=== PATIENT | female | born 1960 | race Caucasian/White ===

== ENCOUNTER 2023-05-31 03:51 | Emergency (ER) | payer BC, SELFPAY ==
[2023-05-31 03:55] VITALS: BP 135/72
[2023-05-31 05:12] LABS: % Basophils 0.7 % (0-2); % Eosinophils 3.7 % (0-6); % Immature Granulocytes 0.1 % (0-0.5); % Lymphocytes 31.9 % (20.5-51.1); % Monocytes 9.2 % (1.7-9.3); % Neutrophils 54.4 % (42.2-75.2); Absolute Basophils 0.1 10^3/uL (0-0.2); Absolute Eosinophils 0.3 10^3/uL (0-0.7); Absolute Lymphocytes 2.3 10^3/uL (1.2-3.4); Absolute Monocytes 0.7 10^3/uL (0.1-0.6); Hematocrit 38.1 % (37.0-47.0); Hemoglobin 12.9 g/dL (12.0-16.0); Mean Corp Hgb Conc. 33.9 g/dL (33.0-37.0); Mean Corpuscular Hgb 30.5 pg (27.0-31.0); Mean Corpuscular Volume 90.1 fL (81.0-99.0); Mean Platelet Volume 10.1 fL (7.4-10.4); Nucleated Red Blood Cells % 0 %; Platelet Count 281 10^3/uL (130-400); Red Blood Cell Count 4.23 10^6/uL (4.20-5.40); Red Cell Dist. Width 13.3 % (11.5-14.5); White Blood Cell Count 7.3 10^3/uL (4.8-10.8)
[2023-05-31 05:26] LABS: ALT (SGPT) 26 U/L (0-35); AST (SGOT) 28 U/L (14-36); Albumin 3.8 g/dl (3.5-5.0); Alkaline Phosphatase 113 U/L (38-126); Blood Urea Nitrogen 21 mg/dl (7-17); Carbon Dioxide 31 mmol/L (22-30); Chloride 106 mmol/L (98-107); Glucose 119 mg/dl (70-99); Potassium 4.1 mmol/L (3.5-5.1); Sodium 138 mmol/L (135-145); Total Bilirubin 0.5 mg/dl (0.2-1.3); Total Protein 6.4 g/dl (6.3-8.2); eGFR > 60.00
[2023-05-31 05:43] VITALS: BP 124/60; BMI 27.3
--- NOTE | 2023-05-31 05:44 | EDRN ---
Pt has had a fluttering feeling in her chest most of yesterday. She noted it in the afternoon carrying through to bed time. Pt denies cp. Pt woke up with fluttering feeling in her chest at which time she felt a little dizzy. Symptoms lessened by
time pt arrived to ED and are currently gone. Pt had similar episode 1 week ago while shoveling the walk and associated it with having had covid at the end of April. Pt denies sob, abd pain, n/v, fever/chills/cough.
[2023-05-31 06:00] VITALS: BP 111/95
--- NOTE | 2023-05-31 07:48 | ED.GENMED ---
History of Present Illness
General
Chief Complaint: Breathing Problem
Source: patient
Exam Limitations: none
Time Seen by Provider: 05/31/23 07:12
Nursing documentation reviewed up to this point in time: agreed with
Travel History
Have you had any contact with someone who has COVID-19?: Yes
Comment: unknown
Do you have any symptoms of coronavirus? Fever > 100 degrees, chills, cough, shortness of breath, sore throat, loss of taste or smell, muscle aches, or headache?: Yes
Symptoms:: SOB
History of Present Illness
History of Present Illness:
63-year-old female with history of IBS, GERD, neuroendocrine tumor removal with pancreatectomy, splenectomy and cholecystectomy 2021 presents stating last p.m. and all through the night she felt heart fluttering, palpitations. They awakened her at
3:30 AM and she felt shaky and lightheaded and a little short of breath. She denies chest pain. She denies breaking out in a sweat. She had similar episode intermittently all day off and on after shoveling last week. She had COVID a month ago
with mild symptoms of achiness, sinus stuffiness and loss of smell for 2 weeks.
She is asymptomatic at this time, her last symptoms were at 5 AM. 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
Past History
Past History
ED Past Medical History: GERD, Psychiatric (Panic/anxiety: this is no longer a problem since she had her neuroendocrine tumor removed in 2021) and Other (Irritable bowel disease )
ED Past Surgical History: Appendectomy and Other (recent pancreatic surgery, splenectomy, cholecystectomy. )
Patient has exhibited threatening behavior?: No
PSI?: No
Social History
Tobacco: Non-smoker
Alcohol: None
Personal:
Living: with family
Employment: Employed
Family History
Family History: Other (no Significant)
Review of Systems
Review of Systems
Allergies reviewed?: Yes
All Other Systems: ROS reviewed and negative except as documented in HPI and ROS
Constitutional: Denies fever or fatigue
Respiratory: Denies cough or trouble breathing
Cardiac: Reports chest pain and palpitations; Denies diaphoresis or syncope
ABD/GI: Denies abdominal pain, nausea, vomiting or diarrhea
: Denies dysuria or difficulty voiding
Musculoskeletal: Reports no symptoms
Skin: Reports no symptoms
Neurological: Denies dizzy, headache, weakness or numbness
Phy Exam
Physical Exam
Physical Exam:
GENERAL: No acute distress. A&Ox3.
CONSTITUTIONAL: Afebrile.
EYES: PERRL, conjunctivae normal
ENMT: moist mucus membranes, Pharynx nl
RESPIRATORY: Regular respirations, nonlabored, lungs clear.
CARDIOVASCULAR: Regular rate and rhythm, no murmurs, no rubs.
GI: Soft, nontender, normal BS
MUSCULOSKELETAL: Moves with ease. Well perfused. No edema
SKIN: Warm, dry, pink
PSYCH: Normal mood and affect. Well kept, interactive and appropriate
NEUROLOGIC: Awake, alert and oriented. No focal neurological deficits
Scores
Heart Failure Risk
Heart Failure Risk Score: Not Applicable
Course
Orders/Labs/Results
Orders:
Orders
05/31/23 04:23
ECG [Electrocardiogram (*1)] Urgent
Reason for Study: Palpitations
Cardiology Consult: Unknown
EKG- Treatment ONCE
05/31/23 04:46
Complete Blood Count/With Diff Urgent
Comprehensive Metabolic Panel Urgent
TSH Reflex To Free T4 Urgent
Comment: ADD ON
05/31/23 07:24
Add On- LAB Urgent
Tests Added?: TSH reflex T4
05/31/23 07:25
Add On- LAB Urgent
Tests Added?: Troponin
CR Chest - 2 Views Urgent
Comment:
Reason For Exam: palpitations, lightheaded, SOB
05/31/23 07:57
Troponin I Urgent
Abnormal Lab Results
05/31/23
04:46
Absolute Monos (auto) 0.7 H 10^3/uL
(0.1-0.6)
Carbon Dioxide 31 H mmol/L
(22-30)
BUN 21 H mg/dl
(7-17)
Glucose 119 H mg/dl
(70-99)
05/31/23 04:46
05/31/23 04:46
Vital Signs
Initial and Last Documented VS:
Initial Vital Signs
Temp Pulse Resp BP Pulse Ox
98.1 F 73 20 135/72 98
05/31/23 03:55 05/31/23 03:55 05/31/23 03:55 05/31/23 03:55 05/31/23 03:55
Last Documented Vital Signs
Temp Pulse Resp BP Pulse Ox
98.1 F 72 13 116/67 96
05/31/23 03:55 05/31/23 10:00 05/31/23 10:00 05/31/23 10:00 05/31/23 10:00
MDM/Problems Addressed
Differential Diagnosis Includes:
ACS, GERD, thyroid abnormality
MDM/Problems Addressed:
63-year-old female with history of IBS, GERD, neuroendocrine tumor removal with pancreatectomy, splenectomy and cholecystectomy 2021 presents stating last p.m. and all through the night she felt heart fluttering, palpitations. They awakened her at
3:30 AM and she felt shaky and lightheaded and a little short of breath. She denies chest pain. She denies breaking out in a sweat. She had similar episode intermittently all day off and on after shoveling last week. She had COVID a month ago
with mild symptoms of achiness, sinus stuffiness and loss of smell for 2 weeks.
She is asymptomatic at this time, her last symptoms were at 5 AM. 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
EKG: Sinus bradycardia
05/31/2023 0751 AM
CBC normal
CMP shows mild dehydration with a BUN of 21 otherwise normal
TSH: WNL
Troponin: WNL
05/31/2023 1006 AM
Chest x-ray NAD
No palpitations during stay or on monitor
Nothing worrisome in today's workup, nothing to explain pts symptoms. Asymptomatic during stay. Symptoms started last early evening. No need to repeat Troponin.
seed Dr. Miranda. She will call his office tomorrow (Thursday) for appointment.
Stable for discharge.
*Critical Care Note
Total Time (30-74mins, 75-104mins- exclusive of procedures): Not Applicable
ED Attending Note
-
Portions of this chart may have been created with voice recognition software.� Occasional wrong word or��sound alike� substitutions may have occurred due to the inherent limitations of voice recognition software.
Discharge Plan
Departure
Patient Disposition: Home (Routine Discharge)
Date of Disposition: 05/31/23
Time of Disposition: 10:14
Patient with high blood pressure during this ER visit?: No
Condition: Good
Discharge Problem:
Heart palpitations
Instructions: Heart Palpitations
Prescriptions:
No Action
ascorbic acid (vitamin C) [Vitamin C] 500 MG tablet
1,000 mg PO DAILY
omega 1-gew-iwr-fish oil 1 EACH capsule
1 cap PO DAILY
CalMag Thins 1 EACH tablet
3 ea PO DAILY
multivitamin Tablet
1 tab PO DAILY
pantoprazole 40 mg Tablet,Delayed Release (Dr/Ec)
40 mg PO DAILY
cholecalciferol (vitamin D3) [Vitamin D3] 125 mcg (5,000 unit) Tablet
125 mcg PO DAILY
Referrals:
Driss Miranda DO [Active] - Call in 1-3 days for appt
Ruma Carmen DO [Family Provider] -
Activity Restrictions/Additional Instructions:
As we discussed, your workup here today shows nothing worrisome, nothing to explain your symptoms.
Call Dr. Miranda's office tomorrow morning and make next available appointment.
Return here immediately if your symptoms recur or if you develop chest pain, nausea or feeling worse in any way.
Interventions
Interventions:
*Risk Screen - Suicide Last Done: 05/31/23 03:55
*General Assessment Last Done: 05/31/23 03:55
*Neglect/Abuse Screening Last Done: 05/31/23 03:55
ED- Fall Risk Assessment Last Done: 05/31/23 03:55
*ED COVID-19 Vaccine History Last Done: 05/31/23 03:55
*Nursing Disposition Last Done: 05/31/23 10:30
ED- Cardiac Assessment Last Done: 05/31/23 05:43
ED- Pulmonary Assessment Last Done: 05/31/23 05:43
Discharge Date and Time
Discharge Date/Time: 05/31/23 10:30
[2023-05-31 08:27] LABS: Troponin I < 0.012 ng/ml
[2023-05-31 08:50] LABS: TSH Reflex To Free T4 2.88 uIU/ml (0.47-4.68)
[2023-05-31 09:43] VITALS: BP 119/59
[2023-05-31 10:00] VITALS: BP 116/67
== END 2023-05-31 10:30 | disposition home or self-care (01) ==
LOC: EMR 03:51
PROVIDERS: Emergency Medicine; Registered Nurse; EMERGENCY PHYSICIAN Emergency Medicine; FAMILY PHYSICIAN Family Medicine
DX: R00.2 Palpitations (principal); K21.9 Gastro-esophageal reflux disease without esophagitis; F41.9 Anxiety disorder, unspecified; K58.9 Irritable bowel syndrome, unspecified; Z90.81 Acquired absence of spleen
CPT/HCPCS: 99283; 71046; 80053; 84443; 84484; 85025; 93005

== ENCOUNTER 2023-11-15 09:17 | Emergency (ER) | payer BC, SELFPAY ==
[2023-11-15 09:19] VITALS: BP 129/89
--- NOTE | 2023-11-15 11:30 | ED.GENMED ---
History of Present Illness
General
Chief Complaint: Back Pain
Source: patient
Exam Limitations: none
Time Seen by Provider: 11/15/23 11:13
Nursing documentation reviewed up to this point in time: agreed with
History of Present Illness
History of Present Illness:
63-year-old female presents emerged from complaining of low back pain and left leg pain. She was diagnosed with sciatica. She is seen orthopedics and primary care doctor. She reports she has had fever and diarrhea.
Past History
Past History
ED Past Medical History: GERD, Psychiatric (Panic/anxiety: this is no longer a problem since she had her neuroendocrine tumor removed in 2021) and Other (Irritable bowel disease )
ED Past Surgical History: Appendectomy and Other (recent pancreatic surgery, splenectomy, cholecystectomy. )
Patient has exhibited threatening behavior?: No
PSI?: No
Social History
Tobacco: Non-smoker
Alcohol: None
Personal:
Living: with family
Employment: Employed
Family History
Family History: Other (no Significant)
Review of Systems
Review of Systems
Allergies reviewed?: Yes
All Other Systems: Not applicable
Constitutional: Reports fever
EENT: Reports no symptoms
Respiratory: Reports no symptoms
Cardiac: Reports no symptoms
ABD/GI: Reports abdominal pain and diarrhea
: Reports no symptoms
Musculoskeletal: Reports back pain
Skin: Reports no symptoms
Neurological: Reports no symptoms
Endocrine: Reports no symptoms
Hematologic/Lymphatic: Reports no symptoms
Psychiatric: Reports no symptoms
Phy Exam
Physical Exam
Physical Exam:
Physical Exam
General: no apparent distress, not acutely ill
Neck: supple. no meningeal signs. normal posterior pharynx
Heart: s1/s2 regular rate and rhythm, no murmur. equal radial
pulses.
HEENT: Pupils equal round reactive to light, EOMI
Lungs: no acute respiratory distress. clear bilaterally
Abdomen: normal bowel sounds. not tender. no CVAT, midline abdominal scar
Neuro: alert and oriented. no focal neurological deficits cranial nerves II through XII intact
Skin: no rash
Psychiatric: well kept. interactive and cooperative
Extremities: no edema. no calf tenderness. negative homans. good distal pulses
Course
Orders/Labs/Results
Orders:
Orders
11/15/23 11:30
Gabapentin [Neurontin] 300 mg PO NOW STA
11/15/23 11:41
Complete Blood Count/With Diff Urgent
Comprehensive Metabolic Panel Urgent
Abnormal Lab Results
11/15/23
11:41
Absolute Neuts (auto) 7.9 H 10^3/uL
(1.4-6.5)
Neutrophils % 81.0 H %
(42.2-75.2)
Lymphocytes % 14.3 L %
(20.5-51.1)
Glucose 120 H mg/dl
(70-99)
AST 113 H U/L
(14-36)
ALT 208 H U/L
(0-35)
11/15/23 11:41
11/15/23 11:41
Vital Signs
Initial and Last Documented VS:
Initial Vital Signs
Temp Pulse Resp BP Pulse Ox
98.7 F 84 17 129/89 99
11/15/23 09:19 11/15/23 09:19 11/15/23 09:19 11/15/23 09:19 11/15/23 09:19
Last Documented Vital Signs
Temp Pulse Resp BP Pulse Ox
98.7 F 84 17 129/89 99
11/15/23 09:19 11/15/23 09:19 11/15/23 09:19 11/15/23 09:19 11/15/23 09:19
MDM/Problems Addressed
Differential Diagnosis Includes:
Sciatica, electrolyte abnormality
MDM/Problems Addressed:
63-year-old female with diarrhea, likely viral, abdomen exam benign. No signs of cauda equina. Patient stable for discharge. Follow-up with orthopedics.
Chronic conditions affecting care: Other (Irritable bowel syndrome)
Acute Exacerbation and/or Progression of Chronic Illness: Other (Irritable bowel syndrome)
*Pulse Oximetry
Patient hypoxic: no
*EKG
Interpreted by ED Provider?: NA
*Official Greeter Interpretation
Rate: Official Greeter- N/A
*Critical Care Note
Total Time (30-74mins, 75-104mins- exclusive of procedures): Not Applicable
Patient Management
Social determinants of health affecting care: Living situation
Escalation/DeEscalation of care consider admission/obs:
Admit not indicated
ED Attending Note
-
Portions of this chart may have been created with voice recognition software.� Occasional wrong word or��sound alike� substitutions may have occurred due to the inherent limitations of voice recognition software.
Discharge Plan
Departure
Patient Disposition: Home (Routine Discharge)
Date of Disposition: 11/15/23
Time of Disposition: 13:43
Patient with high blood pressure during this ER visit?: Yes
Condition: Good
Discharge Problem:
Sciatica, Diarrhea
Instructions: Sciatica (DC), Acute Diarrhea
Prescriptions:
New
gabapentin 300 mg capsule
300 mg PO TID PRN (Reason: Pain) Qty: 30 0RF
No Action
ascorbic acid (vitamin C) [Vitamin C] 500 MG tablet
1,000 mg PO DAILY
omega 6-ump-fsg-fish oil 1 EACH capsule
1 cap PO DAILY
CalMag Thins 1 EACH tablet
3 ea PO DAILY
multivitamin Tablet
1 tab PO DAILY
pantoprazole 40 mg Tablet,Delayed Release (Dr/Ec)
40 mg PO DAILY
cholecalciferol (vitamin D3) [Vitamin D3] 125 mcg (5,000 unit) Tablet
125 mcg PO DAILY
Referrals:
Ruma Carmen DO [Family Provider] - Call in 1-3 days for appt
Activity Restrictions/Additional Instructions:
Follow-up with orthopedics. Return for any concerns.
Interventions
Interventions:
*Risk Screen - Suicide Last Done: 11/15/23 09:19
*General Assessment Last Done: 11/15/23 09:19
*Neglect/Abuse Screening Last Done: 11/15/23 09:19
*ED COVID-19 Vaccine History Last Done: 11/15/23 09:19
ED-Musculoskeletal Assessment Last Done: 11/15/23 11:02
Discharge Date and Time
Print Language: SCOTTISH
[2023-11-15] MEDS: NEURONTIN 300 MG PO (11:36)
[2023-11-15 11:48] LABS: % Basophils 0.4 % (0-2); % Eosinophils 0.1 % (0-6); % Immature Granulocytes 0.3 % (0-0.5); % Lymphocytes 14.3 % (20.5-51.1); % Monocytes 3.9 % (1.7-9.3); Absolute Lymphocytes 1.4 10^3/uL (1.2-3.4); Absolute Monocytes 0.4 10^3/uL (0.1-0.6); Absolute Neutrophils 7.9 10^3/uL (1.4-6.5); Hematocrit 40.4 % (37.0-47.0); Hemoglobin 13.9 g/dL (12.0-16.0); Mean Corp Hgb Conc. 34.4 g/dL (33.0-37.0); Mean Corpuscular Volume 87.3 fL (81.0-99.0); Mean Platelet Volume 10.2 fL (7.4-10.4); Nucleated Red Blood Cells % 0 %; Platelet Count 323 10^3/uL (130-400); Red Blood Cell Count 4.63 10^6/uL (4.20-5.40); Red Cell Dist. Width 13.2 % (11.5-14.5); White Blood Cell Count 9.8 10^3/uL (4.8-10.8)
[2023-11-15 12:02] LABS: ALT (SGPT) 208 U/L (0-35); AST (SGOT) 113 U/L (14-36); Albumin 4.5 g/dl (3.5-5.0); Alkaline Phosphatase 123 U/L (38-126); Blood Urea Nitrogen 15 mg/dl (7-17); Calcium 10.1 mg/dl (8.4-10.2); Carbon Dioxide 27 mmol/L (22-30); Chloride 104 mmol/L (98-107); Glucose 120 mg/dl (70-99); Sodium 139 mmol/L (135-145); Total Bilirubin 0.7 mg/dl (0.2-1.3); Total Protein 7.1 g/dl (6.3-8.2); eGFR > 60.00
== END 2023-11-15 14:09 | disposition home or self-care (01) ==
LOC: EMR 09:17
PROVIDERS: EMERGENCY PHYSICIAN Emergency Medicine; FAMILY PHYSICIAN Family Medicine
DX: M54.42 Lumbago with sciatica, left side (principal); M79.605 Pain in left leg; R50.9 Fever, unspecified; R19.7 Diarrhea, unspecified; K21.9 Gastro-esophageal reflux disease without esophagitis; F41.0 Panic disorder [episodic paroxysmal anxiety]; F41.9 Anxiety disorder, unspecified; K58.9 Irritable bowel syndrome, unspecified; Z90.81 Acquired absence of spleen; Z90.49 Acquired absence of other specified parts of digestive tract
CPT/HCPCS: 99283; 80053; 85025

== ENCOUNTER 2024-05-27 06:23 | Day surgery (SDC) | payer BC, SELFPAY | END 2024-05-27 09:10 | disposition home or self-care (01) | LOC: GI 06:23 | PROVIDERS: ATTENDING PHYSICIAN Internal Medicine Gastroenterology; FAMILY PHYSICIAN Family Medicine | DX: D12.0 Benign neoplasm of cecum (principal); K57.30 Diverticulosis of large intestine without perforation or abscess without bleeding; Z86.0101 Personal history of adenomatous and serrated colon polyps | CPT/HCPCS: 45380; 88305 ==

== ENCOUNTER → 2024-06-18 09:59 | Outpatient (REF) | payer BC, SELFPAY | LOC: WDC 09:59 | PROVIDERS: ATTENDING PHYSICIAN Family Medicine | DX: Z12.31 Encounter for screening mammogram for malignant neoplasm of breast (principal) | CPT/HCPCS: 77063; 77067 ==